=== PATIENT | female | born 1940 | race Caucasian/White ===

== ENCOUNTER 2017-01-20 14:17 | Outpatient (CLI) | payer MEDICARE, OTHER ==
[2017-01-20 14:43] LABS: #Basophils 0.1 thou/uL (0.0-0.2); #Eosinphils 0.2 thou/uL (0.0-0.7); #Lymphocytes 2.8 thou/uL (1.20-3.40); #Monocytes 0.6 thou/uL (0.11-0.59); #Neutrophils 3.5 thou/uL (1.40-6.50); %Basophils 0.7 % (0.0-1.0); %Eosinophils 2.9 % (0.0-10.0); %Monocytes 8.3 % (0.0-10.0); %Neutrophils 49.1 % (42.0-75.0); Mean Corpuscular HGB CONC 32.7 g/dL (32.0-36.0); Mean Corpuscular Hemoglobin 30.1 pg (27.0-31.0); Mean Corpuscular Volume 92.1 fl (81.0-99.0); Mean Platelet Volume 8.4 fL (7.4-10.4); Platelet Count 145 thou/uL (130-400); RBC Distribution Width 12.2 % (11.5-14.5); Red Blood Cell (RBC) Count 4.64 mill/uL (4.20-5.40); White Blood Cell (WBC) Count 7.1 thou/uL (4.8-10.8)
[2017-01-20 14:57] LABS: ALT (SGPT) 18 U/L (0-55); AST (SGOT) 26 U/L (5-34); Albumin 4.1 g/dL (3.4-4.8); Alkaline Phosphatase 53 U/L (40-150); Anion Gap 16 mmol/L (10-20); BUN (Urea Nitrogen) 17 mg/dL (9.8-20.1); Bilirubin, Total 1.4 mg/dL (0.2-1.2); CRP (Inflammatory) Less than 0.50 mg/dL (= or < 0.5); Calc. Creatinine Clearance 0 mL/min (70-130); Calcium 9.6 mg/dL (7.8-10.44); Carbon Dioxide 24 mmol/L (23-31); Chloride 106 mmol/L (98-107); Estimated GFR-MDRD 84; Globulin 2.9 g/dL (2.4-3.5); Glucose 79 mg/dL (83-110); Potassium 4.4 mmol/L (3.5-5.1); Sodium 142 mmol/L (136-145)
[2017-01-23 07:27] LABS: Antinuclear AB Negative (Negative)
== END 2017-01-20 14:18 | disposition home or self-care (01) ==
LOC: MADLAB 14:17
PROVIDERS: ATTEND Student in an Organized Health Care Education/Training Program
DX: F99 Mental disorder, not otherwise specified (principal); R41.3 Other amnesia; Z86.39 Personal history of other endocrine, nutritional and metabolic disease
CPT/HCPCS: 36415; 80053; 82306; 82607; 85025; 85652; 86038; 86140; 86592

== ENCOUNTER 2017-01-23 12:26 | Outpatient (CLI) | payer MEDICARE, OTHER | END 2017-01-23 12:27 | disposition home or self-care (01) | LOC: MADLAB 12:26 | PROVIDERS: ATTEND Student in an Organized Health Care Education/Training Program | DX: M62.81 Muscle weakness (generalized) (principal) | CPT/HCPCS: 36415; 84207; 84425 ==

== ENCOUNTER 2017-04-21 11:34 | Outpatient (CLI) | payer MEDICARE, OTHER | END 2017-04-21 11:35 | disposition home or self-care (01) | LOC: MADLABBHPM 11:34 | PROVIDERS: ATTEND Family Medicine | DX: N30.01 Acute cystitis with hematuria (principal) | CPT/HCPCS: 36415; 87077; 87086; 87186 ==

== ENCOUNTER 2019-02-26 16:21 | Emergency (ER) | payer MEDICARE, OTHER ==
[2019-02-26 17:20] LABS: Bilirubin Small (Negative); Blood, Urine Trace (Negative); Glucose, Urine (Dipstick) Negative (Negative); Leukocyte Negative (Negative); Nitrite Negative (Negative); Protein, Urine (Dipstick) 100 mg/dL (Neg-Trace); Specific Gravity, Urine 1.025 (1.005-1.030); Urobilinogen 0.2 mg/dL (0.2-1.0); pH, Urine 5.5 (5.0-9.0)
[2019-02-26 17:22] LABS: #Basophils 0.1 thou/uL (0.0-0.2); #Eosinphils 0.1 thou/uL (0.0-0.7); #Lymphocytes 1.9 thou/uL (1.20-3.40); #Monocytes 0.7 thou/uL (0.11-0.59); #Neutrophils 7.2 thou/uL (1.40-6.50); %Basophils 0.8 % (0.0-1.0); %Eosinophils 0.6 % (0.0-10.0); %Lymphocytes 18.8 % (21.0-51.0); %Monocytes 6.9 % (0.0-10.0); Hemoglobin 14.5 g/dL (12.0-16.0); Mean Corpuscular HGB CONC 31.6 g/dL (32.0-36.0); Mean Corpuscular Hemoglobin 28.5 pg (27.0-31.0); Mean Corpuscular Volume 90.3 fL (78.0-98.0); Mean Platelet Volume 9.1 fL (7.4-10.4); Platelet Count 173 thou/uL (130-400); Red Blood Cell (RBC) Count 5.09 mill/uL (4.20-5.40); White Blood Cell (WBC) Count 9.9 thou/uL (4.8-10.8)
[2019-02-26 17:26] LABS: Bacteria/HPF Rare-Few HPF (None Seen); Clarity Hazy (Clear); RBC/HPF 0-3 HPF (0-3); WBC/HPF 0-3 HPF (0-3)
[2019-02-26 17:28] LABS: Amphetamine Not Detected (NotDetected); Barbiturates Screen Not Detected (NotDetected); Benzodiazepine Screen Not Detected (NotDetected); Cocaine Metabolite Screen Not Detected (NotDetected); Medtox Control Line Valid? VALID (VALID); Methadone Not Detected (NotDetected); Methamphetamine Not Detected (NotDetected); Opiate Screen Not Detected (NotDetected); Oxycodone Screen Not Detected (NotDetected); Phencyclidine (PCP) Not Detected (NotDetected); THC/Cannabinoid Screen Not Detected (NotDetected); Tricyclic Screen Not Detected (NotDetected)
[2019-02-26 17:36] LABS: ALT (SGPT) 21 U/L (8-55); AST (SGOT) 34 U/L (5-34); Albumin 4.6 g/dL (3.4-4.8); Alkaline Phosphatase 73 U/L (40-150); Anion Gap 17 mmol/L (10-20); BUN (Urea Nitrogen) 15 mg/dL (9.8-20.1); Calc. Creatinine Clearance 0 mL/min (70-130); Carbon Dioxide 26 mmol/L (23-31); Chloride 103 mmol/L (98-107); Estimated GFR-MDRD 69; Globulin 3.8 g/dL (2.4-3.5); Glucose 122 mg/dL (83-110); Potassium 3.9 mmol/L (3.5-5.1); Protein, Total 8.4 g/dL (6.0-8.3); Sodium 142 mmol/L (136-145)
[2019-02-26] MEDS ORDERED: ALPRAZolam 0.5 MG TAB ONE (18:28)
--- NOTE | 2019-02-26 20:34 | CT ---
CT HEAD WITHOUT IV CONTRAST COMPARISON: 01/21/2017 HISTORY: Head injury TECHNIQUE: Axial CT imaging at 5 mm intervals from vertex through skull base without contrast FINDINGS: Again noted are chronic small vessel ischemic changes and cerebral volume loss which have not signifi cantly progressed from prior exam. Calcifications are again seen in the right basal ganglia. Stable small focal area of encephalomalacia in the most anterior right parafalcine location is again noted. There is no evidence of an acute infarction, hemorrhage, mass effect, or midline shift. The ventricu lar system is normal in size, shape, and position. Visualized paranasal sinuses are clear. Postoperative changes of the frontal calvarium are again seen IMPRESSION: 1. No acute intracranial abnormality demonstrated. CT head is stable when compared to study in 2017.
== END 2019-02-26 20:52 | disposition home or self-care (01) ==
LOC: MADERS 16:21
DX: S00.93XA Contusion of unspecified part of head, initial encounter (principal); F29 Unspecified psychosis not due to a substance or known physiological condition; X58.XXXA Exposure to other specified factors, initial encounter
CPT/HCPCS: 36415; 70450; 80053; 80306; 81003; 81015; 84443; 85025; 93005